=== PATIENT | female | born 2000 | race Caucasian/White ===

== ENCOUNTER 2020-06-01 12:53 | Emergency (ER) | payer OTHER ==
[2020-06-01 13:05] VITALS: BP 144/80; PULSE 90; TEMP 98.2; BMI 25.8
[2020-06-01 14:42] LABS: BASO % 0.5 % (0-2.0); EOS % 1.2 % (0-4.5); HEMOGLOBIN 13.3 GM/dL (10.7-15.3); MCH 31.3 pg (25.7-33.7); MEAN CELL VOLUME 92.2 fl (80-96); MEAN PLT VOLUME 8.4 fl (7.5-11.1); MONO % 5.8 % (3.8-10.2); NEUT % 62.5 % (42.8-82.8); PLATELET COUNT 189 K/MM3 (134-434); RBC 4.24 M/mm3 (3.60-5.2); RDW 13.1 % (11.6-15.6); WHITE BLOOD COUNT 5.2 K/mm3 (4.0-10.0)
[2020-06-01 14:47] LABS: HCG,QUALITATIVE URINE Negative
[2020-06-01 14:49] LABS: PH,URINE 7.5 (5.0-8.0); URINE APPEARANCE CLEAR; URINE BILIRUBIN NEGATIVE (NEGATIVE); URINE COLOR YELLOW; URINE GLUCOSE (UA) NEGATIVE (NEGATIVE); URINE KETONE NEGATIVE (NEGATIVE); URINE LEUK ESTERASE NEGATIVE (NEGATIVE); URINE NITRITE NEGATIVE (NEGATIVE); URINE PROTEIN NEGATIVE (NEGATIVE)
[2020-06-01 15:01] LABS: POTASSIUM 4.1 mmol/L (3.5-5.1)
[2020-06-01 15:03] LABS: ALBUMIN 4.2 g/dl (3.4-5.0); CALCIUM 8.9 mg/dL (8.5-10.1)
[2020-06-01 15:04] LABS: BLOOD UREA NITROGEN 14.9 mg/dL (7-18)
[2020-06-01 15:06] LABS: CREATININE 0.7 mg/dL (0.55-1.3)
[2020-06-01 15:08] LABS: BILIRUBIN,TOTAL 0.2 mg/dL (0.2-1); TOT PROT 7.9 g/dl (6.4-8.2)
== END 2020-06-01 17:30 | disposition home or self-care (01) ==
LOC: JER 12:53 → EDBD 12:53 → JER 17:30
DX: R10.30 Lower abdominal pain, unspecified (principal); N83.202 Unspecified ovarian cyst, left side
CPT/HCPCS: 36415; 76830-TC; 80053; 81003; 84703; 85025; 87077; 87086; 99284-25